=== PATIENT | female | born 1955 | race African-American/Black ===

== ENCOUNTER → 2022-02-15 11:44 | Outpatient (BNVA) | payer MEDICARE, MEDICAID, SELFPAY | PROVIDERS: PCP Internal Medicine; Visit Provider Student in an Organized Health Care Education/Training Program | DX: M1A.0790 Idiopathic chronic gout, unspecified ankle and foot, without tophus (tophi) (principal); M65.4 Radial styloid tenosynovitis [de Quervain] | CPT/HCPCS: 99202 ==

== ENCOUNTER → 2022-04-21 11:26 | Outpatient (BNVA) | payer MEDICARE, MEDICAID, SELFPAY | PROVIDERS: PCP Internal Medicine; Visit Provider Student in an Organized Health Care Education/Training Program | DX: M1A.0790 Idiopathic chronic gout, unspecified ankle and foot, without tophus (tophi) (principal); M65.4 Radial styloid tenosynovitis [de Quervain]; G62.9 Polyneuropathy, unspecified | CPT/HCPCS: 99212 ==

== ENCOUNTER → 2022-05-24 11:07 | Outpatient (BNVA) | payer MEDICARE, MEDICAID, SELFPAY | PROVIDERS: PCP Internal Medicine; Visit Provider Orthopaedic Surgery | DX: M65.4 Radial styloid tenosynovitis [de Quervain] (principal); R20.0 Anesthesia of skin | CPT/HCPCS: 20550; 99202; J1100 ==

== ENCOUNTER 2022-08-17 10:42 | Outpatient (REF) | payer MEDICARE, MEDICAID, SELFPAY ==
--- NOTE | 2022-08-17 10:46 | EMG_ITS ---
Bilateral median and ulnar motor and sensory studies were performed. Bilateral radial sensory studies were performed and paraspinal muscles were tested with a needle. IMPRESSION: 1. Moderately severe right and mild to moderate left median neuropathy across carpal tunnel. 2. Bilateral ulnar sensory neuropathy. MD LOW Gonzales/ROSE / [id number]
== END 2022-08-17 10:43 | disposition home or self-care (01) ==
LOC: HO.NEURO 10:42
PROVIDERS: Visit Provider Orthopaedic Surgery
DX: R20.0 Anesthesia of skin (principal); R20.2 Paresthesia of skin
CPT/HCPCS: 95886; 95911

== ENCOUNTER → 2022-10-20 10:10 | Outpatient (BNVA) | payer MEDICARE, MEDICAID, SELFPAY | PROVIDERS: PCP Internal Medicine; Visit Provider Student in an Organized Health Care Education/Training Program | DX: M1A.0790 Idiopathic chronic gout, unspecified ankle and foot, without tophus (tophi) (principal); M65.4 Radial styloid tenosynovitis [de Quervain] | CPT/HCPCS: 99212 ==

== ENCOUNTER 2023-07-30 14:42 | Outpatient (AMB) | payer MEDICARE, MEDICAID, SELFPAY ==
--- NOTE | 2023-07-30 14:49 | MHC.OFFVIS ---
Intake Intake Visit Reasons: Gout Intake Note: Patient last seen 10/20/22, presents today for follow up and test results. c/o left ankle pain Patient has missed a few doses of Allopurinol due to running out. Patient needs a new cane. Safety Teacher Required: No Accompanied by: Self / Same As Patient Allergies No Known Allergies Allergy (Verified 10/20/22 10:20) Medication List - Last Reconciled 07/30/23 by Brian Martino MD acetaminophen (Tylenol Extra Strength) 1,000 mg PO Q6H PRN albuterol sulfate 90 mcg/actuation 2 puffs inhalation Q4H PRN allopurinol 200 mg (2 x 100 mg) PO DAILY amlodipine-benazepril 10-40 mg 1 cap PO DAILY diclofenac sodium 1% 4 grams topical QID epinephrine 0.3 mg IM ONCE PRN fluticasone propionate 50 mcg/actuation 1 - 2 sprays intranasal DAILY furosemide 20 mg PO DAILY PRN hydrochlorothiazide 25 mg PO DAILY metformin ER 500 mg PO QAM pravastatin 20 mg PO DAILY [thumb spica splint use bedtime & as much as you can throughout the day] HPI HPI Comments History of Present Illness Details 68-year-old female with gout returns for follow-up. Patient states that she ran out of her allopurinol 1-2 months ago. States that over the last 3-4 days she has been having left ankle pain and swelling. Denies any fevers. Initial history: This is a 66-year-old female with a past medical history of hypertension, dyslipidemia, type 2 diabetes mellitus, gout and bilateral knee osteoarthritis was here for evaluation of gout. The condition started about 2 years ago with bilateral big toe pain and warmth. She would not be able to even put a sheet on it. She was seen by Mr. Pro at [place] and was started on allopurinol 100 mg daily and colchicine 0.6 mg daily with good control of her gout symptoms. About a year ago allopurinol was increased to 200 mg daily and colchicine was continued. Patient ran out of her meds for about 1 month but her PCP prescribed all her meds about 1 month ago. About 1 week ago she started having pain and tingling of both big toes. No significant swelling or erythema. She denies history of kidney stones. No family history of gout. For her bilateral knee OA she was evaluated by Orthopedic surgery and she has to lose weight before they can operate. Also did 2 days ago she started noticing left thumb pain. She denies any trauma or overuse of that left hand. [facility] Medical History Chronic venous stasis dermatitis of both lower extremities Bilateral primary osteoarthritis of knee Type 2 diabetes mellitus Dyslipidemia Thoracic aortic aneurysm Hypertension Surgical History Hx of hysterectomy Family History Mother Medical history unknown Father Medical history unknown Social History Household Members: None Alcohol intake: never Patient Tobacco Use Status: Never used Tobacco Current occupational status: retired Review of Systems [facility] Reports arthralgias, Reports joint swelling and Reports stiffness Physical Exam Const General: cooperative, healthy appearing, comfortable and no acute distress Nutritional Appearance: obese morbidly obese Orientation/consciousness: patient oriented x3 Limitations: ambulation with cane HEENT Head: Yes normocephalic and Yes atraumatic Resp Effort & Inspection: normal respiratory effort and able to speak in complete sentences Neuro General: patient oriented x3 Extrem Other: Left ankle warmth, mild erythema and tenderness Assessment & Plan Assessment & Plan (1) Gout: Code(s): M10.9 - Gout, unspecified Qualifiers: Gout site: foot Gout etiology: idiopathic Chronicity: chronic Laterality: unspecified laterality Presence of tophus: without tophus Qualified Code(s): M1A.0790 - Idiopathic chronic gout, unspecified ankle and foot, without tophus (tophi) Plan: 68-year-old female with gout returns for follow-up. Patient ran out of her allopurinol 1-2 months ago. Today she has having a gout flare-up affecting her left ankle. Restart allopurinol 200 mg daily. Start colchicine 0.6 mg Twice daily for 1 week then 0.6 mg daily for 1 week Labs before next visit in 3 months Plan I spent 16 minutes reviewing patient's chart, evaluating patient, ordering diagnostic workup, counseling patient and documenting in the chart Orders: Orders Complete Blood Count Auto Diff 3 Months M10.9 - Gout, unspecified Comprehensive Met. Panel 3 Months M10.9 - Gout, unspecified Uric Acid 3 Months M10.9 - Gout, unspecified Medications: New colchicine Take 1 tab twice daily for 1 week then 1 tab daily for 1 week. Keep additional tabs to be used as needed 30 tabs 1RF Refilled allopurinol 200 mg (2 x 100 mg) PO DAILY 180 tabs 1RF Coding Level of Care Code Est Pt Level 3 (83505) Diagnoses Idiopathic chronic gout of foot without tophus, unspecified laterality M1A.0790 Gout site: foot Gout etiology: idiopathic Chronicity: chronic Laterality: unspecified laterality Presence of tophus: without tophus
== END 2023-07-30 15:30 | disposition home or self-care (01) ==
PROVIDERS: PCP Internal Medicine; Visit Provider Student in an Organized Health Care Education/Training Program
DX: M1A.0790 Idiopathic chronic gout, unspecified ankle and foot, without tophus (tophi) (principal)
CPT/HCPCS: 99213

== ENCOUNTER → 2023-07-30 14:42 | Outpatient (BNVA) | payer MEDICARE, MEDICAID, SELFPAY | PROVIDERS: PCP Internal Medicine; Visit Provider Student in an Organized Health Care Education/Training Program | DX: M1A.0790 Idiopathic chronic gout, unspecified ankle and foot, without tophus (tophi) (principal) | CPT/HCPCS: 99212 ==

== ENCOUNTER 2024-05-13 11:01 | Outpatient (AMB) | payer MEDICARE, MEDICAID, SELFPAY ==
--- NOTE | 2024-05-13 11:02 | MHC.OFFVIS ---
Vital Signs 05/13/24 11:03 Height 5 ft 3 in Weight 300 lb BMI 53.1 BP 134/74 Blood Pressure Location Lt brachial Pulse 75 Pulse Source Pulse Oximeter Pulse Oximetry (%) 99 Oxygen Delivery Method Room Air Intake Visit Reasons: Gout Intake Note: Patient last seen by Doctor Brian Martino on 07/30/23. Presents today for Gout follow up and test results. Allergies No Known Allergies Allergy (Verified 05/13/24 11:06) Medication List - Last Reconciled 05/13/24 by Brian Martino MD acetaminophen (Tylenol Extra Strength) 1,000 mg PO Q6H PRN albuterol sulfate 90 mcg/actuation 2 puffs inhalation Q4H PRN allopurinol 200 mg (2 x 100 mg) PO DAILY amlodipine-benazepril 10-40 mg 1 cap PO DAILY diclofenac sodium 1% 4 grams topical QID epinephrine 0.3 mg IM ONCE PRN fluticasone propionate 50 mcg/actuation 1 - 2 sprays intranasal DAILY furosemide 20 mg PO DAILY PRN hydrochlorothiazide 25 mg PO DAILY metformin ER 500 mg PO QAM pravastatin 20 mg PO DAILY [thumb spica splint use bedtime & as much as you can throughout the day] HPI Comments Details: 68-year-old female with gout returns for follow-up. She states that she has been doing well overall. No gout problems recently. Compliant with allopurinol 200 mg daily Initial history: This is a 66-year-old female with a past medical history of hypertension, dyslipidemia, type 2 diabetes mellitus, gout and bilateral knee osteoarthritis was here for evaluation of gout. The condition started about 2 years ago with bilateral big toe pain and warmth. She would not be able to even put a sheet on it. She was seen by Mr. Pro at [place] and was started on allopurinol 100 mg daily and colchicine 0.6 mg daily with good control of her gout symptoms. About a year ago allopurinol was increased to 200 mg daily and colchicine was continued. Patient ran out of her meds for about 1 month but her PCP prescribed all her meds about 1 month ago. About 1 week ago she started having pain and tingling of both big toes. No significant swelling or erythema. She denies history of kidney stones. No family history of gout. For her bilateral knee OA she was evaluated by Orthopedic surgery and she has to lose weight before they can operate. Also did 2 days ago she started noticing left thumb pain. She denies any trauma or overuse of that left hand. [facility] Medical History Chronic venous stasis dermatitis of both lower extremities Bilateral primary osteoarthritis of knee Type 2 diabetes mellitus Dyslipidemia Thoracic aortic aneurysm Hypertension Surgical History Hx of hysterectomy Family History Mother Medical history unknown Father Medical history unknown Social History Household Members: None Alcohol intake: never Patient Tobacco Use Status: Never used Tobacco Current occupational status: retired Female Reproductive History Menstrual Total pregnancies: 6 Number of Living Children: 5 Ab spontaneous: 1 Review of Systems Musc Denies arthralgias, Denies joint swelling and Denies stiffness Physical Exam Vital Signs: Last Vital Signs Pulse 75 05/13/24 11:03 BP 134/74 05/13/24 11:03 Pulse Ox 99 05/13/24 11:03 Oxygen Delivery Method Room Air 05/13/24 11:03 BMI result Body Mass Index 53.1 Const General: cooperative, healthy appearing, comfortable and no acute distress Nutritional Appearance: obese morbidly obese Orientation/consciousness: patient oriented x3 Limitations: ambulation with walker HEENT Head: Yes normocephalic and Yes atraumatic Resp Effort & Inspection: normal respiratory effort and able to speak in complete sentences Neuro General: patient oriented x3 Extrem Other: Trace pitting edema No active synovitis today Assessment & Plan Assessment & Plan (1) Gout: Code(s): M10.9 - Gout, unspecified Category: Medical Qualifiers: Gout site: foot Gout etiology: idiopathic Chronicity: chronic Laterality: unspecified laterality Presence of tophus: without tophus Qualified Code(s): M1A.0790 - Idiopathic chronic gout, unspecified ankle and foot, without tophus (tophi) Plan: 68-year-old female with gout returns for follow-up. On allopurinol 200 mg daily. Doing well overall no recent gout flare-ups. Patient did not do the requested blood work. Continue with allopurinol 200 mg daily Check blood work before next visit in 6 months Plan I spent 16 minutes reviewing patient's chart, evaluating patient, ordering diagnostic workup, counseling patient and documenting in the chart Orders: Orders Uric Acid 6 Months - Idiopathic chronic gout, unspecified ankle and foot, without tophus (tophi) Comprehensive Met. Panel 6 Months - Idiopathic chronic gout, unspecified ankle and foot, without tophus (tophi) Medications: Refilled allopurinol 200 mg (2 x 100 mg) PO DAILY 180 tabs 1RF Discontinued colchicine Discontinued Reason: Patient Completed Course 0.6 mg PO DAILY PRN 30 tabs 0RF for gout pain Coding Level of Care Code Est Pt Level 3 (05325) Diagnoses Idiopathic chronic gout of foot without tophus, unspecified laterality Gout site: foot Gout etiology: idiopathic Chronicity: chronic Laterality: unspecified laterality Presence of tophus: without tophus
[2024-05-13 11:03] VITALS: BP 134/74; PULSE 75; O2SAT 99; BMI 53.1
== END 2024-05-13 11:29 | disposition home or self-care (01) ==
PROVIDERS: PCP Internal Medicine; Visit Provider Student in an Organized Health Care Education/Training Program
DX: M1A.0790 Idiopathic chronic gout, unspecified ankle and foot, without tophus (tophi) (principal)
CPT/HCPCS: 99213

== ENCOUNTER → 2024-05-13 11:01 | Outpatient (BNVA) | payer MEDICARE, MEDICAID, SELFPAY | PROVIDERS: PCP Internal Medicine; Visit Provider Student in an Organized Health Care Education/Training Program | DX: M1A.0790 Idiopathic chronic gout, unspecified ankle and foot, without tophus (tophi) (principal) | CPT/HCPCS: 99212 ==

== ENCOUNTER 2025-03-27 13:24 | Outpatient (AMB) | payer MEDICARE, MEDICAID, SELFPAY ==
--- NOTE | 2025-03-27 13:25 | A.OFFVIS_ITS ---
Vital Signs 03/27/25 13:34 Height 5 ft 3 in Weight 322 lb 8.58 oz BMI 57.1 BP 124/90 H Blood Pressure Location Lt brachial Position Sitting Pulse 75 Pulse Source Pulse Oximeter Pulse Oximetry (%) 98 Oxygen Delivery Method Room Air Intake Visit Reasons: Gout Intake Note: Patient presents for folllow up. Allergies No Known Allergies Allergy (Verified 03/27/25 13:33) Medication List - Last Reconciled 03/27/25 by Elizabeth Rivera MD acetaminophen (Tylenol Extra Strength) 1,000 mg PO Q6H PRN albuterol sulfate 90 mcg/actuation 2 puffs inhalation Q4H PRN allopurinol 200 mg (2 x 100 mg) PO DAILY amlodipine-benazepril 10-40 mg 1 cap PO DAILY diclofenac sodium 1% 4 grams topical QID epinephrine 0.3 mg IM ONCE PRN fluticasone propionate 50 mcg/actuation 1 - 2 sprays intranasal DAILY furosemide 20 mg PO DAILY PRN hydrochlorothiazide 25 mg PO DAILY metformin ER 500 mg PO QAM pravastatin 20 mg PO DAILY [thumb spica splint use bedtime & as much as you can throughout the day] HPI Comments Details: Patient is a 69-year-old female with hypertension, diabetes complicated by peripheral neuropathy, hyperlipidemia, polyarticular osteoarthritis and non crystal proven non tophaceous gout here today for follow up Interval History: Patient last seen 05/13/[address] Martino - On allopurinol 200mg daily and colchicine 0.6mg - Stable - No gout flares - Colchcine discontinued Today - On allopurinol 200mg daily - Feels that she had a minor gout flare in her feet described as a tingling feeling (L>R) - Denies any red, hot, swollen joint - Also complains of bilateral knee pain. Sees ortho. Known knee OA. Needs to lose weight before they will consider surgery - Planning to see weight management for help Rheumatologic History: Gout - Allopurinol 200mg - Colchcine discontinued 04/2024 Initial history: This is a 66-year-old female with a past medical history of hypertension, dyslipidemia, type 2 diabetes mellitus, gout and bilateral knee osteoarthritis was here for evaluation of gout. The condition started about 2 years ago with bilateral big toe pain and warmth. She would not be able to even put a sheet on it. She was seen by Mr. Pro at [place] and was started on allopurinol 100 mg daily and colchicine 0.6 mg daily with good control of her gout symptoms. About a year ago allopurinol was increased to 200 mg daily and colchicine was continued. Patient ran out of her meds for about 1 month but her PCP prescribed all her meds about 1 month ago. About 1 week ago she started having pain and tingling of both big toes. No significant swelling or erythema. She denies history of kidney stones. No family history of gout. For her bilateral knee OA she was evaluated by Orthopedic surgery and she has to lose weight before they can operate. Also did 2 days ago she started noticing left thumb pain. She denies any trauma or overuse of that left hand. Current Rheumatology Medication(s): Allopurinol 200mg daily PFSH Medical History Chronic venous stasis dermatitis of both lower extremities Bilateral primary osteoarthritis of knee Type 2 diabetes mellitus Dyslipidemia Thoracic aortic aneurysm Hypertension Surgical History Hx of hysterectomy Family History Mother Medical history unknown Father Medical history unknown Social History Household Members: None Alcohol intake: never Patient Tobacco Use Status: Never used Tobacco Current occupational status: retired Review of Systems Narrative Review of Systems Constitutional: Denies fever, chills, weight loss ENT: Denies vision changes, eye pain or eye redness, dental caries, dry mouth GI: Denies nausea, vomiting, diarrhea, abdominal pain, change in BM Pulm: Denies SOB, JOSE, hemoptysis, wheezing Cards: Denies chest pain, palpitations Skin: Denies Raynaud's, rash, nail changes, photosensitivity, SENIOR MECHANICAL TECHNICIAN: Denies headaches, weakness, paresthesias, recurrent falls MSK: as per HPI All other systems reviewed and are unremarkable except noted above Physical Exam Exam Exam: Vital signs reviewed Physical Examination CONSTITUITIONAL Patient alert and cooperative. Well appearing and in no apparent painful distress Obese MSK Hands * Right Hand: Able to make a fist. No swelling or tenderness to palpation of the MCPs, PIPs or DIPs. * Left Hand: Able to make a fist. No swelling or tenderness to palpation of the MCPs, PIPs or DIPs. Wrists * Right Wrist: Full ROM to flexion and extension. No swelling or TTP * Left Wrist: Full ROM to flexion and extension. No swelling or TTP Elbows * Right Elbow: Full ROM. No swelling or TTP. No TTP of the medial epicondyle. No TTP of the lateral epicondyle * Left Elbow: Full ROM. No swelling or TTP. No TTP of the medial epicondyle. No TTP of the lateral epicondyle Shoulders * Right shoulder: Full ROM. No swelling noted. No TTP of the AC joint. No TTP of the subacromial bursa. No TTP of the posterior shoulder * Left shoulder: Full ROM. No swelling noted. No TTP of the AC joint. No TTP of the subacromial bursa. No TTP of the posterior shoulder Knees * Right knee: No swelling noted. TTP of the knee joint line. No TTP of pes anserine bursa * Left knee: No swelling noted. TTP of the knee joint line. No TTP of pes anserine bursa. * Crepitations felt bilaterally * Lymphedema noted in the thighs Ankles * Right ankle: Good ankle dorsiflexion and plantar flexion. No swelling. No TTP of the ankle joint * Left ankle: Good ankle dorsiflexion and plantar flexion. No swelling. No TTP of the ankle joint Feet * Right foot: Negative squeeze test * Left foot: Negative squeeze test Tender points? * No tenderness to palpation of the bilateral trapezius, supraspinatus, anterior costochondral junctions, bilateral suboccipital muscle insertions SKIN No rashes No tophi Results Reviewed Results Reviewed: [facility] 01/16/24 WBC 6.7 Hb 12.0 Plt 264 BUN 16 Cr 0.84 eGFR 76 Uric Acid 7.5 AST 10 ALT 18 ESR CRP Assessment & Plan Assessment & Plan (1) Gout: Comment: Gout 2019 - Allopurinol 200mg - Colchicine discontinued 04/2024 Code(s): M10.9 - Gout, unspecified Category: Medical Qualifiers: Gout site: foot Gout etiology: idiopathic Chronicity: chronic Laterality: unspecified laterality Presence of tophus: without tophus Qualified Code(s): M1A.0790 - Idiopathic chronic gout, unspecified ankle and foot, without tophus (tophi) Plan: #Non crystal proven non tophaceous gout Patient is a 69-year-old female with non crystal proven non tophaceous gout here today for follow up. Last uric acid was not at goal with 7.4. No uric acid done prior to appointment. We will need to check labs today. Discussed with patient that if her uric acid is above 6 we will need to increase her allopurinol to get her to goal. She is okay to take colchicine as needed for her flares. She currently has a stock at home. Plan - Allopurinol 200mg daily, if Uric acid not at goal will increase to 300mg - Colchicine 0.6mg daily - Labs today: CMP and Uric Acid - RTC 6 months - Labs before visit: CBC, CMP, ESR, CRP, Uric Acid (2) Encounter for monitoring allopurinol therapy: Code(s): Z51.81 - Encounter for therapeutic drug level monitoring; Z79.899 - Other care home (current) drug therapy Plan: #Long-term Current Use of Allopurinol Risks and benefits of allopurinol discussed with patient Benefits include decreased gout flares, remission of gout and reduction of tophi Risks include allopurinol hypersensitivity syndrome which is a severe cutaneous adverse reaction associated with allopurinol use particularly in patients who are HLA B*5801 positive, increased transaminases, GI upset including diarrhea, nausea and vomiting, and other dermatologic manifestations. Plan This is my first visit with the patient. I spent 30 minutes reviewing the record and labs, taking a history, examining the patient, discussing the treatment plan, ordering diagnostic work up and documenting in the medical record Orders: Orders C Reactive Protein 6 Months M1A - Idiopathic chronic gout, unspecified ankle and foot, without tophus (tophi) Uric Acid 6 Months M1A.789 - Idiopathic chronic gout, unspecified ankle and foot, without tophus (tophi) Comprehensive Met. Panel 6 Months M1 - Idiopathic chronic gout, unspecified ankle and foot, without tophus (tophi) Erythrocyte Sedimentation Rate 6 Months M1 - Idiopathic chronic gout, unspecified ankle and foot, without tophus (tophi) Coding Level of Care Code Est Pt Level 4 (05030) Complex EM visit Add On G2211 Diagnoses Idiopathic chronic gout of foot without tophus, unspecified laterality M1A.789 Gout site: foot Gout etiology: idiopathic Chronicity: chronic Laterality: unspecified laterality Presence of tophus: without tophus Encounter for monitoring allopurinol therapy Z51.81; Z79.896
[2025-03-27 13:34] VITALS: BP 124/90; PULSE 75; O2SAT 98; BMI 57.1
--- OUTSIDE RECORDS SUMMARY | 2025-03-27 15:29 | XMS_ITS ---
Author Name [facility] Organization Unknown Care Team Organization Name Specialty Phone Email Start Date End Da te [facility] ACO 01/07/2025 [facility] Delfino Granados Primary Care 01/25/2023 01/07/20 [facility] Jonna Zavala APRN Primary Care 10/27/2022 01/07/2024 [facility] Evelyn Gaspar Primary Care 03/28/202212/19
--- OUTSIDE RECORDS SUMMARY | 2025-03-27 15:29 | XMS_ITS | Encounter Summary ---
Author Organization [facility] Address [address] [place] [address] Care Team Providers Care Director Gift Name Role Phone Delfino Granados MD Primary Care Provider [phone] Reason for Visit * Reason Onset Date Comments Request For Order(s) 03/24/2025 Encounter Details Date Type Department Care Team ([facility] Contact Info) Description 03/24/2025 Telephone Internal Medicine - [facility] [address] [place] [phone] Delfino Granados MD [address] [place] [id number] Social History Tobacco Use Types Packs/Day Years Used Date Smoking Tobacco: Never Smokeless Tobacco: Never Alcohol Use Standard Drinks/Week Comments No 0 (1 standard drink = 0.6 oz pur e alcohol) Housing Instability Answer Date Recorde d Are you worried that in the next 2 months you may not have stable housing? No 02/10/2025 Food Access & Nutrition Answer Date Rec orded Do you have access to a vari ety of food including fruits and vegetables? Yes 02/10/2025 Health Literacy Answer Date Recorded How often do you need to hav e someone help you when you read instructions, pamphlets, or other written material from your doctor or pharmacy? Never 02/10/2025 Caregiver: How often do you need to have someone help you when you read instructions, pamphlets, or other written material from your doctor or pharmacy? Not on file 02/10/2025 Financial Risk Answer Date Recorded How hard is it for you to pa y for the very basics like food, housing, medical care, and air conditioning / heating? Not very hard 02/10/2025 Transportation Answer Date Recorded Has the lack of transportati on kept you from meetings, work, or from getting things needed for daily living? No Has the lack of transportati on kept you from medical appointments or from getting medications? No 02/10/2025 Social Isolation Answer Date Recorded How often do you feel lonely or isolated from th ose around you? Never 02/10/2025 Food Risk Answer Date Recorded Within the past 12 months we worried whether our food would run out before we got money to buy more. Never true 02/10/2025 Within the past 12 months th e food we bought just didn't last and we didn't have money to get more. Never true 02/10/2025 Dependent Care Answer Date Recorded Do you need help finding or paying for care for your loved ones. For example, child adolescent psychiatrist or elderly care for an older adult? No 02/10/2025 Education Answer Date Recorded Do you think completing more education or training, like finishing a GED, going to college, or learning a trade, would be helpful for you? No 02/10/2025 Employment and Income Answer Date Recor ded During the last four weeks, have you been actively looking for work? No 02/10/2025 Living Situation Answer Date Recorded What is your living situation? Unrecognized valu e 02/10/2025 Comments Unknown Sex and Gender Information Value Date Recorded Sex Assigned at Female 05/22/2024 10:12 AM EST Legal Sex Female 6:12 PM EST Gender Identity Female 05/22/2024 10:12 AM EST Sexual Orientation Choose not to disclose 2024 10:12 AM EST documented as of this encounter Progress Notes * Dorothea Art MA - 03/24/2025 11:57 AM EST Prescriptions printed and placed at the test desk trouble locator / Patient was called and made aware * Dia Jameson - 03/24/2025 11:11 AM EST Pt received order for walker and compression stockings on 11/2024. Says she lost them and was too embarrassed to call to ask for another one. Wants to know if this order is still good and if so, if a copy can be given to her to sweet pickle maker. Or if she has to be seen for a new one. [phone] documented in this encounter Plan of Treatment Upcoming Encounters Date Type Department Care Team (Late st Contact Info) Description 04/20/2025 1:30 PM EST Consult Bariatric Surgery - [place] [address] [place] [phone] Gilbert Pool MD [address] [place] [address] documented as of this encounter Visit Diagnoses Not on filedocumented in this encounter Additional Health Concerns Assessment Noted Time PHQ-9 Depression Total Score: 0 02/11/20 1:22 PM EDT documented as of this encounter Care Teams Director Gift Relationship Specialty Start Date End Date Delfino Granados MD [address] [place] [phone] PCP - General Internal Medicine 05/22/24 documented as of this encounter
--- OUTSIDE RECORDS SUMMARY | 2025-03-27 15:29 | XMS_ITS | Clinical Summary ---
[facility] Address [address] [place] [address] Phone Care Team Providers Care Cruise Staff Member Name Role Phone Gilberto Arrieta MD Primary Care Provider [phone] Allergies Active Allergy Reactions Criticality Noted Date Comments Bee Venom Protein (Honey Bee) Swelling 2014 Medications allopurinoL (ZYLOPRIM) 100 mg tablet Take 2 Tablets by mouth daily. 2 Active aspirin 81 mg EC tablet Take 81 mg by mouth daily. OTC Active acetaminophen (TYLENOL 8 HOUR) 650 mg 8 hr tablet TAKE 1 TABLET BY MOUTH EVERY 8 HOURS NEEDED FOR PAIN FOR UP TO 10 DAYS. 30 tablet 5 Active EPINEPHrine (EpiPen 2-Nasir) 0.3 mg/0.3 mL injection Inject 0.3 mg into the muscle as needed for Other (anaphylactic reaction). Fill with whichever brand is covered by insurance. 1 each 1 5 Active amLODIPine-benaze pril (LOTREL) 10-40 mg per capsule Take 1 capsule by mouth 1 (one) time each day. TAKE 1 CAPSULE BY MOUTH EVERY DAY 90 capsule 1 5 Active pravastatin (PRAVACHOL) 40 mg tablet Take 1 tablet (40 mg total) by mouth 1 (one) time each day. 90 tablet 1 5 Active metFORMIN XR (GLUCOPHAGE-XR) 500 mg 24 hr tablet Take 1 tablet (500 mg total) by mouth 1 (one) time each day with breakfast. Do not crush, chew, or split. 90 tablet 5 Active fluticasone propionate (FLONASE) 50 mcg/actuation nasal spray USE DAILY SHAKE GENTLY. BEFORE FIRST USE, PRIME PUMP. AFTER USE, CLEAN TIP AND REPLACE CAP. 16 mL 1 5 Active albuterol HFA (PROAIR HFA ; PROVENTIL HFA ; VENTOLIN HFA) 90 mcg/actuation inhaler INHALE 2 PUFFS BY MOUTH EVERY 4 (FOUR) HOURS IF NEEDED FOR WHEEZING. 6.7 each 1 5 Active hydroCHLOROthiazi de (HYDRODIURIL) 25 mg tabletIndications :Essential (primary) hypertension TAKE 1 TABLET BY MOUTH EVERY DAY 90 tablet 1 5 Active colchicine (MITIGARE) 0.6 mg capsule capsule Take 1 capsule (0.6 mg total) by mouth if needed. Active Active Problems Problem Noted Date Diagnosed Date Arthritis 02/20/2024 Gout 02/20/2024 Murmur 11/04/2021 Overview (02/20/2024): Last Assessment & Plan: Patient states this is new for her. I explained that she should be evaluated for this by her primary care physician and may require echocardiogram. Multiple pulmonary nodules 10/24/2021 Overview (02/20/2024): Last Assessment & Plan: 67-year-old woman with a slowly enlarging area of consolidation/mass in the left upper lobe over time which was biopsied and negative for malignancy however the microbiology showed strep pneumonia and fungus. I did discuss with her the findings from her navigational bronchoscopy which I did caution her a little bit that this does not totally rule out malignancy but it is very encouraging given the overall picture. She does not have any symptoms and I suspect that this is colonization in that area however I want her to see a car repairman for further evaluation and to assess the need for possible treatment. The fungus should probably speciate out at that time by then. Hyperuricemia 10/05/2020 Elevated serum creatinine 10/05/2020 Diabetes mellitus, type II ([facility] V24, [facility] V28) 09/13/2020 Thoracic ascending aortic aneurysm ([facility] V24) 07/06/2019 Chronic pain of both knees 02/20/2019 Venous insufficiency of both lower extremities 0 11/14/2016 Overview (02/20/2024): With stasis dermatitis Essential hypertension 12/09/2015 Osteoarthritis of both knees 08/24/2015 Hyperlipidemia 07/24/2014 Morbid obesity ([facility] V24, [facility] V28) 2014 Encounters Date Type Department Care Team Description 03/24/2025 Telephone [facility] [address] [place] [address] Gilberto Arrieta MD 02/10/2025 1:00 PM EDT Telemedicine [facility] [address] [place], [place] [address] [address] Encounter for subsequent annual wellness visit (AWV) in Medicare patient (Primary Dx) 01/16/2025 Telephone Internal Medicine - [facility] [address] [place] [address] Gilberto Arrieta MD from Last 3 Months Immunizations Immunization Administration Dates Next Due Tdap Tetanus diptheria acell ular pertussis (Boostrix; Adacel) 7yo and older 06/15/2014 Surgical History Surgery Date Site/Laterality Comments BREAST BIOPSY Right PROCEDURE: BX BREAST; PERC NEEDLE CORE W/IMAG GUID HYSTERECTOMY 03/2018 PROCEDURE: HISTORICAL HYSTERECTOMY COLONOSCOPY 10/19/2021 PROCEDURE: HISTORICAL COLONOSCOPY; COMMENT: tubular adenoma and diverticulosis Medical History Medical History Date Comments Essential hypertension 12/09/2015 DX:Essent ial hypertension Venous insufficiency of both lower extremities 11/14/2016 DX:Venous insufficiency of b oth lower extremities Arthritis DX:Arthritis Gout DX:Gout Hypercholesteremia Family History Medical History Relation Name Comments Other: other Brother x4 2 unsure if canc er Throat cancer Daughter x2 No Known Problems Father Other: cancer,other Mother at age 58 Breast cancer Sister x4 3 COPD Sister x4 3 Other: other Sister x4 3 cancer unsure of type No Known Problems Son x3 Relation Name Status Comments Brother x4 2 Daughter x2 Alive Father Maternal Grandfather Maternal Grandmother Mother Sister x4 3 Son x3 Alive Social History Tobacco Use Types Packs/Day Years [...] care for your loved ones. For example, childcare aide or elderly care for an older adult? [...] not to disclose 2024 10:12 AM EST Obstetrics History Last Filed Vital Signs Vital Sign Reading Time Taken Comments Blood Pressure 154/80 12/08/2024 10:43 AM EDT Pulse 76 12/08/2024 10:43 AM EDT Temperature 36.2 C (97.1 F) 10/18/2024 1:09 PM EDT Respiratory Rate - - Oxygen Saturation 97% 10/18/2024 1:09 PM EDT Inhaled Oxygen Concentration - - Weight 132 kg (292 lb) 03/20/2024 10:11 AM EDT Height 160 cm (5' 3 ) 12/08/2024 10:43 AM EDT Body Mass Index 51.73 03/20/2024 10:11 AM EDT Plan of Treatment Upcoming Encounters Date Type Department Care Team (Late st Contact Info) Description 04/20/2025 1:30 PM EST Consult Bariatric Surgery - [address] [place] [address] Gilbert Pool MD [address] [place] [address] Health Maintenance Due Date Last Done Comments Diabetes: Annual Retina Eye Exam 1966 Pneumococcal Vaccine: 50+ Years (1 of 2 - PCV) 1975 Hepatitis B Vaccines (2 of 3 - 19+ 3-dose series) 12/13/2004 11/15/2004 RSV Immunization Adult Patients (1 - Risk 50-74 years 1-dose series) 2006 Zoster Vaccines (1 of 2) 2006 Osteoporosis Screening (Bone Density Screening) 04/29/2022 Diabetes: Annual Urine Albumin-Creatinine Ratio (uACR) 02/13/2024 02/12/2023 Diabetes: Annual Foot Exam 03/19/2024 03/19/2023 COVID-19 Vaccine ( - season) 2025 Influenza Vaccine (#1) 2025 Diabetes: Blood Sugar Control Test (HGBA1C) 07/18/2025 01/16/2025, 03/20/2024, 02/12/2023 Breast Cancer Screening 10/10/2025 10/11/19 24, 10/11/2023, 02/18/2019, Additional history exists Diabetes: Annual GFR (Glomerular Filtration Rate) 01/16/2026 01/16/2025, 03/20/2024, 02/12/2023 Hypertension/CHF/CAD Annual BMP Blood Test 01/16/2026 01/16/2025, 03/20/2024, 02/12/2023 Falls Risk Assessment 02/10/2026 02/10/2025, 023 Medicare Annual Wellness Visit 02/10/2026 02/10/2025 Social Influencers of Health Screening 02/10/2026 02/10/2025 Colorectal Cancer Screening: Colonoscopy 10/19/2026 10/19/2021 DTaP,Tdap,and Td Vaccines (4 - Td or Tdap) 12/28/2029 12/29/2019, 06/15/2014, 11/11/2007 Cholesterol Screening (Lipid Panel) 01/16/2030 01/16/2025, 03/20/2024, 02/12/2023 Hepatitis C Screening Completed 11/14/2016 Depression Screening Completed 02/10/2025 HIB Vaccines Aged Out No longer eligi ble based on patient's age to complete this topic HPV Vaccines Aged Out No longer eligi ble based on patient's age to complete this topic Hepatitis A Vaccines Aged Out No long er eligible based on patient's age to complete this topic IPV Vaccines Aged Out No longer eligi ble based on patient's age to complete this topic MMR Vaccines Aged Out No longer eligi ble based on patient's age to complete this topic Meningococcal ACWY Vaccine Aged Out N o longer eligible based on patient's age to complete this topic Meningococcal B Vaccine Aged Out No l onger eligible based on patient's age to complete this topic RSV Immunization Patients Under 20 months Aged Out No longer eligible based on patient's age to complete this topic Varicella Vaccines Aged Out No longer eligible based on patient's age to complete this topic Procedures Procedure Name Priority Date/Time Associated Diagnosis Comments COMPREHENSIVE METABOLIC PANEL Routine 01/16/2025 2:02 PM EDT Type 2 diabetes mellitus with other oral complication, without long-term current use of insulin ([facility] V24, [facility] V28) HEMOGLOBIN A1C Routine 01/16/2025 2:02 PM EDT Type 2 diabetes mellitus with other oral complication, without long-term current use of insulin ([facility] V24, [facility] V28) LIPID PANEL WITH REFLEX TO DIRECT LDL Routine 01/16/2025 2:02 PM EDT Type 2 diabetes mellitus with other oral complication, without long-term current use of insulin ([facility] V24, [facility] V28) [facility] SCREENING DIGITAL Routine 10/11/2023 3:21 PM EDT Encounter for screening mammogram for malignant neoplasm of breast FALLS RISK ASSESSMENT Routine 03/19/2023 DIABETES FOOT EXAM Routine 03/19/2023 URINE ALBUMIN CREATININE RATIO Routine 02/12/2023 COLONOSCOPY Routine 10/19/2021 HEPATITIS C SCREENING Routine 11/14/2016 from Last 3 Months or Most Recently Relevant to Health Maintenance Results * Lipid panel with reflex to direct LDL (01/16/2025 2:02 PM EDT) [facility] Signature Cholesterol 176 0 - 200 mg/dL LAB CHEMISTRY METHOD 01/16/2025 5:40 PM EDT [facility] Triglycerides 97 0 - 150 mg/dL LAB CHEMISTRY METHOD 01/16/2025 5:40 PM EDT [facility] HDL 82 >=40 mg/dL LAB CHEMISTRY METHOD 01/16/2025 5:40 PM EDT [facility] LDL Calculated 75 0 - 100 mg/dL LAB CHEMISTRY METHOD 01/16/2025 5:40 PM EDT [facility] Comment:Estimated LDL Calcul ated using equation: Total cholesterol - HDL cholesterol - (Triglycerides/5) VLDL Cholesterol Kevin 19.4 mg/dL LAB CHEMISTRY METHOD 01/16/2025 5:40 PM EDT [facility] Non HDL Chol. (LDL+VLDL) 94 <145 mg/dL LAB CHEMISTRY METHOD 01/16/2025 5:40 PM EDT [facility] Chol/HDL Ratio 2.1 0.0 - 4.4 LAB CHEMISTRY METHOD 01/16/2025 5:40 PM EDT [facility] Blood Venous blood specimen / Unknown Venipuncture / Unknown 01/16/2025 2:02 PM EDT 01/16/2025 2:02 PM EDT us Gilberto Arrieta MD LAB BLOOD ORDERABLES Final Res ult Performing Organization Address [facility]/ZIP Co de Phone Number [facility] [address] [place] [address], [place] [phone] * (ABNORMAL) Hemoglobin A1c (01/16/2025 2:02 PM EDT) Hemoglobin A1C 7.3(H) <6.5 % LAB CHEMISTRY METHOD 01/16/2025 10:03 PM EDT [facility] Mean Bld Glu Estim. 163 mg/dL LAB CHEMISTRY METHOD 01/16/2025 10:03 PM EDT [facility] Blood Venous blood specimen / Unknown Venipuncture / Unknown 01/16/2025 2:02 PM EDT 01/16/2025 2:02 PM EDT us Gilberto Arrieta MD LAB BLOOD ORDERABLES Final Res ult Performing Organization Address City/[facility]/ZIP Co de Phone Number [facility] [address] [place] [address], [place] [phone] * (ABNORMAL) Comprehensive metabolic panel (01/16/2025 2:02 PM EDT) Sodium 139 133 - 145 mmol/L LAB CHEMISTRY METHOD 01/16/2025 5:33 PM [facility] Potassium 4.0 3.5 - 5.5 mmol/L LAB CHEMISTRY METHOD 01/16/2025 5:33 PM [facility] Chloride 106 96 - 110 mmol/L LAB CHEMISTRY METHOD 01/16/2025 5:33 PM [facility] CO2 27 21 - 32 mmol/L LAB CHEMISTRY METHOD 01/16/2025 5:33 PM [facility] Anion Gap 6 3 - 11 LAB CHEMISTRY METHOD 01/16/2025 5:33 PM [facility] Glucose 230(H) 70 - 100 mg/dL LAB CHEMISTRY METHOD 01/16/2025 5:33 PM [facility] BUN 11 5 - 25 mg/dL LAB CHEMISTRY METHOD 01/16/2025 5:33 PM [facility] Creatinine 1.08 0.50 - 1.10 mg/dL LAB CHEMISTRY METHOD 01/16/2025 5:33 PM [facility] eGFR 56(L) >=60 mL/min/1. 73m2 LAB CHEMISTRY METHOD 01/16/2025 5:33 PM [facility] Comment:Calculation based on the Chronic Kidney Disease Epidemiology Collaboration (CKD-EPI) equation refit without adjustment for race. BUN/Creatinine Ratio 10.2 LAB CHEMISTRY METHOD 01/16/2025 5:33 PM [facility] Calcium 10.2 8.5 - 10.5 mg/dL LAB CHEMISTRY METHOD 01/16/2025 5:33 PM [facility] AST (SGOT) 14 10 - 42 unit/L LAB CHEMISTRY METHOD 01/16/2025 5:33 PM [facility] ALT (SGPT) 22 10 - 60 unit/L LAB CHEMISTRY METHOD 01/16/2025 5:33 PM EDT [facility] Alkaline Phosphatase 97 42 - 121 unit/L LAB CHEMISTRY METHOD 01/16/2025 5:33 PM EDT [facility] Total Protein 7.7 6.0 - 8.0 g/dL LAB CHEMISTRY METHOD 01/16/2025 5:33 PM EDT [facility] Albumin 4.1 3.2 - 5.0 g/dL LAB CHEMISTRY METHOD 01/16/2025 5:33 PM EDT [facility] Total Bilirubin 1.0 0.0 - 1.4 mg/dL LAB CHEMISTRY METHOD 01/16/2025 5:33 PM EDT [facility] Blood Venous blood specimen / Unknown Venipuncture / Unknown 01/16/2025 2:02 PM EDT 01/16/2025 2:02 PM EDT us Gilberto Arrieta MD LAB BLOOD ORDERABLES Final Res ult [facility] [address] [place] [address], * HARRIET SCREENING DIGITAL (10/11/2023 3:21 PM EDT) Anatomical Region Laterality Modality Mammography 10/11/2023 1:01 PM EDT Narrative 10/11/2023 3:21 PM EDT [facility] Diagnostic Imaging Department [address] [place] [address] Patient: ALAINA LAWS/Age/Sex: 1955 - 68 - F Unit#: [id number] Location/Status: SPDIMAM/REG CLI Mnemonic/Ordering Site: [facility] Ordering Physician: GILBERTO ARRIETA MD Harriet Screening Digital - 10/11/23 - 1332 Report Status:Signed EXAM: [facility] Screening Digital EXAM DATE AND TIME: 10/11/2023 1:32 PM HISTORY: Screening. Previous bilateral breast biopsies, pathology benign. COMPARISON: 02/18/19, 02/13/18, 09/04/14 TECHNIQUE: Bilateral digital breast tomosynthesis was performed in the CC and MLO projections. Computer aided detection with GateRocket 3D 3.1 was employed. TISSUE DENSITY: a. The breasts are almost entirely fatty. FINDINGS: No suspicious masses, grouped microcalcifications, or areas of architectural distortion are seen. Biopsy markers are again seen bilaterally. A circumscribed 9 mm nodule in the medial right breast, middle depth, is without significant change, considered benign. There is also a circumscribed 9 mm nodule in the upper outer left breast, without significant change, considered benign. Few coarse, benign calcifications are present. Vascular calcification is seen. The skin is unremarkable. IMPRESSION: Stable mammographic appearance of the breasts. No evidence of malignancy is seen. A negative mammogram in the presence of a clinically suspicious palpable abnormality does not preclude the possibility of malignancy or alter the indications for biopsy. BI-RADS: Category 2: Benign RECOMMENDATION(S): 1: Routine screening mammogram BILATERAL in 1 year. Dictating Physician: MONIK CORONEL MD Electronically Signed by: MONIK CORONEL MD Dic Date/Time: 10/11/23 1520 Sign date/Time: 10/11/23 1521 Procedure Note Monik Coronel MD - 01/07/2024 [facility] Diagnostic Imaging Department [address] [place] [address] Patient: ALAINA LAWS /Age/Sex: 1955 - 68 - F Unit#: [id number] Location/Status: SPDIMA/REG CLI Mnemonic/Ordering Site: [facility] Ordering Physician: GILBERTO ARRIETA MD [facility] Screening Digital - 10/11/23 - 1332 Report Status:Signed EXAM: [facility] Screening Digital EXAM DATE AND TIME: 10/11/2023 1:32 PM HISTORY: Screening. Previous bilateral breast biopsies, pathologybenign. COMPARISON: 02/18/19, 02/13/18, 09/04/14 TECHNIQUE: Bilateral digital breast tomosynthesis was performed in the CCand MLO projections. Computer aided detection with GateRocket 3D 3.1was employed. TISSUE DENSITY: a. The breasts are almost entirely fatty. FINDINGS: No suspicious masses, grouped microcalcifications, or areas ofarchitectural distortion are seen. Biopsy markers are again seen bilaterally. A circumscribed 9 mm nodule inthe medial right breast, middle depth, is without significant change,considered benign. There is also a circumscribed 9 mm nodule in the upper outerleft breast, without significant change, considered benign. Few coarse, benign calcifications are present. Vascular calcification is seen. The skin is unremarkable. IMPRESSION: Stable mammographic appearance of the breasts. No evidence of malignancyis seen. A negative mammogram in the presence of a clinically suspicious palpable abnormality does not preclude the possibility of malignancy or alter the indications for biopsy. BI-RADS: Category 2: Benign RECOMMENDATION(S): 1: Routine screening mammogram BILATERAL in 1 year. Dictating Physician: MONIK CORONEL MD Electronically Signed by: MONIK CORONEL MD Dic Date/Time: 10/11/23 1520 Sign date/Time: 10/11/23 1521 Result [facility] Gilberto Arrieta MD IMG BI PROCEDURES Final Result * Falls Risk Assessment (03/19/2023) [facility] Falls Risk Assessment abstracted Historical Provider HEALTH MAINTENANCE Final Result * Diabetes Foot Exam (03/19/2023) [facility] Diabetes: Annual Foot Exam abstracted Result [facility] Historical Provider HEALTH MAINTENANCE Final Result * Urine Albumin Creatinine Ratio (02/12/2023) [facility] Urine Albumin Creatinine Ratio abstracted Result [facility] Provider HEALTH MAINTENANCE Final Result * Colonoscopy (10/19/2021) [facility] Colonoscopy no interpretation , abstracted Anatomical Region Laterality Modality Other Historical Provider HEALTH MAINTENANCE Final Result * Hepatitis C Screening (11/14/2016) Pathologist [facility] Hepatitis C Screening abstracted Result [facility] Provider HEALTH MAINTENANCE Final Result from Last 3 Months or Most Recently Relevant to Health Maintenance Insurance MEDICARE MEDICAID - [place] [employer] MEDICARE Member Subscriber Plan / Payer (Ef fective 2025-Present) Name:Alaina Laws Relation to Subscriber:Self Name:Alaina Laws Payer ID:[id number] Group ID:[id number] Type:Not on file Address: [address] [place] [id number] Care Teams Cruise Staff Member Relationship Specialty Start Date End Date Gilberto Arrieta MD [address] [place] [id number] PCP - General Internal Medicine 05/22/24
== END 2025-03-27 14:02 | disposition home or self-care (01) ==
LOC: HO.RHES 13:24
PROVIDERS: PCP Internal Medicine; Visit Provider Student in an Organized Health Care Education/Training Program
DX: M1A.0790 Idiopathic chronic gout, unspecified ankle and foot, without tophus (tophi) (principal); Z51.81 Encounter for therapeutic drug level monitoring; Z79.899 Other long term (current) drug therapy
CPT/HCPCS: 99214; G2211

== ENCOUNTER 2025-03-27 13:24 | Outpatient (REF) | payer OTHER, SELFPAY ==
[2025-03-27 18:25] LABS: Alanine Aminotransferase 11 U/L (0-31); Albumin Level 4.4 g/dL (3.5-5.0); Alkaline Phosphatase 88 U/L (39-117); Anion Gap 11 (12-20); Aspartate Amino Transferase 18 U/L (5-31); Blood Urea Nitrogen 13 mg/dL (9-16); Calcium 10.2 mg/dL (8.4-10.2); Carbon Dioxide 26 mmol/L (22-29); Chloride 108 mmol/L (96-108); Estimated Glomerular Filt Rate > 60; Potassium 4.2 mmol/L (3.3-5.1); Sodium 141 mmol/L (135-145); Total Protein 7.7 g/dL (6.5-8.0); Uric Acid 5.7 mg/dL (2.4-5.7)
== END 2025-03-27 13:25 | disposition home or self-care (01) ==
LOC: HO.HKASLDS 13:24
PROVIDERS: PCP Internal Medicine; Visit Provider Student in an Organized Health Care Education/Training Program
DX: M1A.0710 Idiopathic chronic gout, right ankle and foot, without tophus (tophi) (principal); M1A.0720 Idiopathic chronic gout, left ankle and foot, without tophus (tophi); M17.0 Bilateral primary osteoarthritis of knee; Z51.81 Encounter for therapeutic drug level monitoring; Z79.899 Other long term (current) drug therapy
CPT/HCPCS: 36415; 80053; 84550; 99212